=== PATIENT | female | born 1955 | race Caucasian/White ===

== ENCOUNTER → 2023-11-23 09:48 | Outpatient (REF) | payer MEDICARE, OTHER, SELFPAY | LOC: MRI 3T 09:48 | PROVIDERS: ATTENDING PHYSICIAN Physical Medicine & Rehabilitation; FAMILY PHYSICIAN Nurse Practitioner Adult Health | DX: M54.16 Radiculopathy, lumbar region (principal) | CPT/HCPCS: 72148 ==

== ENCOUNTER 2023-12-19 13:46 | Outpatient (RCR) | payer MEDICARE, OTHER, SELFPAY ==
[2023-12-19 14:04] VITALS: BP 113/61
[2023-12-19 14:31] VITALS: BP 108/64
[2023-12-19 14:35] VITALS: BP 95/64
== END 2024-01-16 23:59 | disposition home or self-care (01) ==
LOC: OID 13:46
PROVIDERS: ATTENDING PHYSICIAN Specialist; FAMILY PHYSICIAN Nurse Practitioner Adult Health
DX: E83.110 Hereditary hemochromatosis (principal)
CPT/HCPCS: 99195

== ENCOUNTER 2024-11-26 13:54 | Outpatient (RCR) | payer MEDICARE, OTHER, SELFPAY ==
[2024-11-26 14:07] VITALS: BP 127/50
[2024-11-26 14:32] VITALS: BP 108/66
[2024-11-26 14:39] VITALS: BP 126/60
[2024-11-26 14:40] VITALS: BP 119/67
== END 2024-12-16 23:59 | disposition home or self-care (01) ==
LOC: OID 13:54
PROVIDERS: ATTENDING PHYSICIAN Specialist; FAMILY PHYSICIAN Nurse Practitioner Adult Health
DX: E83.110 Hereditary hemochromatosis (principal); K90.41 Non-celiac gluten sensitivity
CPT/HCPCS: 99195

== ENCOUNTER → 2025-03-25 13:09 | Outpatient (REF) | payer MEDICARE, OTHER, SELFPAY | LOC: WDC 13:09 | PROVIDERS: ATTENDING PHYSICIAN Nurse Practitioner Adult Health | DX: E83.10 Disorder of iron metabolism, unspecified (principal); Z12.31 Encounter for screening mammogram for malignant neoplasm of breast | CPT/HCPCS: 76700; 77063; 77067 ==